=== PATIENT | female | born 1975 | race Caucasian/White ===

== ENCOUNTER 2018-05-30 10:27 | Emergency (ER) | payer OTHER ==
[2018-05-30 10:33] VITALS: BMI 29.9
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
[2018-05-30 14:28] VITALS: BP 107/70; PULSE 68; RESP 17; TEMP 97.8; O2SAT 98
== END 2018-05-30 14:33 | disposition home or self-care (01) ==
LOC: ED 10:27
DX: M54.9 Dorsalgia, unspecified (principal); M25.551 Pain in right hip; S96.911A Strain of unspecified muscle and tendon at ankle and foot level, right foot, initial encounter; S90.31XA Contusion of right foot, initial encounter; V03.10XA Pedestrian on foot injured in collision with car, pick-up truck or van in traffic accident, initial encounter
CPT/HCPCS: 72110; 73502; 73610; 73630; 81025; 96372; 99285; J1885